=== PATIENT | female | born 1970 | race Caucasian/White ===

== ENCOUNTER → 2016-08-24 | Outpatient (CLI) | payer BC ==
[~2016-08-24] MED LIST: BACTRIM DS TABL1 TA1 PO; CIPRO PO; DEMEROL PO; KEFLEX500 MG PO; LORTAB 7.5-5001 TAB PO; TYLOX 5/500 CAP1 CAP PO; VICODIN 5/500 T1 TAB PO
[2016-08-24 10:41] LABS: BASOPHIL# 0.1 X10e3 (0-0.3); BASOPHIL% 0.5 % (0-2.5); DIFF IND NO; EOSINOPHIL# 0.1 X10e3 (0-0.7); EOSINOPHIL% 1.3 % (0.0-7.0); HEMATOCRIT 45.4 % (35.0-45.0); HEMOGLOBIN 15.1 gm/dL (12.0-16.0); LYMPHOCYTE# 3.1 X10e3 (1.0-3.5); LYMPHOCYTE% 26.7 % (17.0-45.0); MEAN CELL VOLUME 92.4 FL (83-96); MEAN CORPUSCULAR HEMOGLOBIN 30.8 PG (28-34); MEAN CORPUSCULAR HGB CONC 33.4 g/dL (30-36); MEAN PLATELET VOLUME 8.5 FL (6.5-11.5); MONOCYTE# 0.8 X10e3 (0-1.0); MONOCYTE% 7.2 % (3.0-12.0); NEUTROPHIL# 7.4 X10e3 (1.5-7.1); NEUTROPHIL% 64.3 % (40-75); PLATELET COUNT 224 X10e3 (140-420); RED BLOOD COUNT 4.91 X10e (3.90-5.30); RED CELL DISTRIBUTION WIDTH 12.7 % (11.0-15.5); WHITE BLOOD COUNT 11.5 X10e3 (4.0-10.5)
== END | disposition home or self-care (01) ==
LOC: CLAB 10:17
PROVIDERS: Nurse Practitioner
DX: R10.9 Unspecified abdominal pain (principal)
CPT/HCPCS: 36415; 85025

== ENCOUNTER → 2016-10-20 | Outpatient (CLI) | payer OTHER ==
--- NOTE | ~2016-10-20 | CR116 ---
[facility] A Service of [facility] & [facility] RADIOLOGY TEXT RESULTS PATIENT: TANIA NARVAEZ LOCATION: [facility] : 68 UNIT #: [id number] AGE: [address]: Cyndie Lopez MD SEX: F ORDER DR: [id number] [facility] [address] [place], [place] [address] [id number] O MR#: [id number] Acc #: [id number] NAME: TANIA NARVAEZ : 1970 SEX: F STUDY DATE/TIME: 10/20/2016 12:53 UNIT: [facility] ROOM: STUDY DESCRIPTION: CR Finger 2 View Thumb Lt Attending Physician: Cyndie Lopez M.D. Ordering Physician: Cyndie Lopez M.D. MEDICAL IMAGING REPORT This report is preliminary unless electronic signature is present EXAM Left thumb, 10/20/2016. HISTORY 45-year-old female with left thumb pain after getting thumb caught in wheelchair today. COMPARISON None. FINDINGS Three views of the left thumb demonstrate no evidence of a displaced fracture or dislocation. Soft tissues are unremarkable. IMPRESSION No evidence of a displaced fracture or dislocation. Dictated by... Leonardo Welsh M.D. THIS IS AN ELECTRONICALLY VERIFIED REPORT Leonardo Welsh M.D. at 10/21/2016 4:06 PM [place]/renate TD: 10/21/2016 05:52 JOB #: [id number] MEDICAL IMAGING REPORT Page 1 of 1 COPY
== END | disposition home or self-care (01) ==
LOC: CRAD 12:30
DX: S62.502A Fracture of unspecified phalanx of left thumb, initial encounter for closed fracture (principal)
CPT/HCPCS: 73140